=== PATIENT | female | born 1960 | race Caucasian/White ===

== ENCOUNTER 2018-01-14 07:07 | Day surgery (SDC) | payer OTHER ==
[2018-01-14] MEDS ORDERED: SIMETHICONE 40 MG/0.6 ML ML ONE (07:28)
[2018-01-14] MEDS ORDERED: MEPERIDINE HCL/PF 100 MG/ML AMP ONE (07:28)
[2018-01-14] MEDS: MIDAZOLAM HCL 5 MG/5 ML VIAL ONE ×2 (08:35→08:37)
[2018-01-14 09:45] VITALS: BP_SYST 159
== END 2018-01-14 10:20 | disposition home or self-care (01) ==
LOC: SDS 07:07 → SMU 07:07 → SDS 10:20
PROVIDERS: ATTEND Internal Medicine Gastroenterology
DX: K29.50 Unspecified chronic gastritis without bleeding (principal); Z12.11 Encounter for screening for malignant neoplasm of colon; D12.2 Benign neoplasm of ascending colon; D12.3 Benign neoplasm of transverse colon; K64.8 Other hemorrhoids; E11.9 Type 2 diabetes mellitus without complications; Z79.84 Long term (current) use of oral hypoglycemic drugs; I10 Essential (primary) hypertension
CPT/HCPCS: 36415; 43239; 45380; 45385; 82962; 87081; 88305; 88312; 88313; J2175; J2250; J7030; 45384